=== PATIENT | male | born 1995 | race African-American/Black ===

== ENCOUNTER 2021-04-06 09:45 | Emergency (ER) | payer OTHER ==
[~2021-04-06] VITALS: Ht 182.9 cm; Wt 93.0 kg
[2021-04-06 10:05] VITALS: BP 117/72
[2021-04-06] MEDS ORDERED: MEDROLDOSEPACK PO (10:38)
[2021-04-06] MEDS ORDERED: NAPROXEN SODIU220 M2 PO (10:38)
== END 2021-04-06 11:29 | disposition home or self-care (01) ==
LOC: ER 09:45
PROVIDERS: Emergency Medicine
DX: U07.1 COVID-19 (principal); J11.1 Influenza due to unidentified influenza virus with other respiratory manifestations; F17.210 Nicotine dependence, cigarettes, uncomplicated